=== PATIENT | female | born 1965 | race Hispanic/Latino ===

== ENCOUNTER 2018-01-06 14:29 | Outpatient (CLI) | payer OTHER ==
--- NOTE | 2018-01-06 16:09 | RAD ---
LUMBAR SPINE: 01/06/18 Three views. Lateral views taken with neutral, flexion and extension positions. INDICATIONS: Spondylosis. Low back pain. Comparison made to exam of 12/16/17. In the neutral position, the lumbar vertebrae maintain normal height and alignment. Disc spaces are p reserved. Mild degenerative osteophytes are seen from the lumbar vertebrae and moderate facet hypertr ophy is noted at L4-5 and L5-S1. There is slight anterolisthesis at L3-4 and L4-5 with flexion. This anterolisthesis is measured at 3 to 4 mm at L3-4 and 4 to 5 mm at L4-5. No change in alignment noted with extension. IMPRESSION: 1. Mild degenerative changes in the lumbar spine as described. 2. Mild anterolisthesis at L3-4 and L4-5 with flexion. POS: [facility]
== END 2018-01-06 14:30 | disposition home or self-care (01) ==
LOC: RAD 14:29
PROVIDERS: ATTEND Nurse Practitioner Family
DX: M47.816 Spondylosis without myelopathy or radiculopathy, lumbar region (principal); M43.16 Spondylolisthesis, lumbar region
CPT/HCPCS: 72100

== ENCOUNTER 2019-04-20 08:59 | Outpatient (CLI) | payer OTHER ==
--- NOTE | 2019-04-20 09:45 | MMO ---
Bilateral MAMMO Bilat Screen [id number]. CLINICAL HISTORY: Patient is 53 years old and is seen for screening. VIEWS: The views performed were: bilateral craniocaudal with tomosynthesis and bilateral mediolateral oblique with tomosynthesis. FILMS COMPARED: The present examination has been compared to prior imaging studies performed at [facility] on 11/14/2008 and 12/07/2010. MAMMOGRAM FINDINGS: There are scattered fibroglandular densities. Finding 1: There are stable benign appearing calcifications seen in both breasts. Finding 2: There is a stable intramammary lymph node seen in the right breast. There are no suspicious masses, suspicious calcifications, or new areas of architectural distortion. IMPRESSION: THERE IS NO MAMMOGRAPHIC EVIDENCE OF MALIGNANCY. A ROUTINE FOLLOW-UP MAMMOGRAM IN 1 YEAR IS RECOMMENDED. THE RESULTS OF THIS EXAM WERE SENT TO THE PATIENT. ACR BI-RADS Category 2 - Benign finding MAMMOGRAPHY NOTE: 1. A negative mammogram report should not delay a biopsy if a dominant of clinically suspicious mass is present. 2. Approximately 10% to 15% of breast cancers are not detected by mammography. 3. Adenosis and dense breasts may obscure an underlying neoplasm. Reported by: JEANETTE NIX MD Electonically Signed: [id number]
== END 2019-04-20 09:00 | disposition home or self-care (01) ==
LOC: BICMAMMO 08:59
PROVIDERS: ATTEND Physician Assistant
DX: Z12.31 Encounter for screening mammogram for malignant neoplasm of breast (principal)
CPT/HCPCS: 77063; 77067

== ENCOUNTER 2020-02-28 13:54 | Observation (INO) | payer SELFPAY ==
--- NOTE | 2020-02-28 14:15 | CT ---
CT head noncontrast HISTORY: Left-sided weakness. FINDINGS: There is no evidence of acute intracranial hemorrhage or infarct. The ventricles appear nor mal in size, shape and position. There is no mass effect or shift of midline structures. Visualized paranasal sinuses remain well aera maty. IMPRESSION : No acute intracranial abnormalities are demonstrated.
[2020-02-28 14:30] LABS: #Eosinphils 0.2 thou/uL (0.0-0.7); #Monocytes 0.4 thou/uL (0.11-0.59); #Neutrophils 3.1 thou/uL (1.40-6.50); %Basophils 0.5 % (0.0-1.0); %Eosinophils 2.8 % (0.0-10.0); %Monocytes 7.3 % (0.0-10.0); %Neutrophils 54.4 % (42.0-75.0); Hemoglobin 12.7 g/dL (12.0-16.0); Mean Corpuscular HGB CONC 31.8 g/dL (32.0-36.0); Mean Corpuscular Hemoglobin 28.5 pg (27.0-31.0); Mean Corpuscular Volume 89.8 fL (78.0-98.0); Platelet Count 203 thou/uL (130-400); RBC Distribution Width 12.3 % (11.5-14.5); Red Blood Cell (RBC) Count 4.44 mill/uL (4.20-5.40); White Blood Cell (WBC) Count 5.7 thou/uL (4.8-10.8)
--- NOTE | 2020-02-28 14:46 | RAD ---
CHEST 1 VIEW: HISTORY: Left-sided weakness, stroke. COMPARISON: 04/18/2014. FINDINGS: Heart size is normal. The lungs are clear. No confluent pneumonia, overt edema, or pleural effusion . IMPRESSION: No acute intrathoracic disease. POS: [facility]
[2020-02-28 14:50] LABS: ALT (SGPT) 84 U/L (8-55); AST (SGOT) 76 U/L (5-34); Albumin 4.7 g/dL (3.5-5.0); Alkaline Phosphatase 74 U/L (40-110); Anion Gap 14 mmol/L (10-20); BUN (Urea Nitrogen) 12 mg/dL (9.8-20.1); Bilirubin, Total 0.5 mg/dL (0.2-1.2); Calc. Creatinine Clearance 0 mL/min (70-130); Calcium 9.7 mg/dL (7.8-10.44); Carbon Dioxide 26 mmol/L (22-29); Chloride 104 mmol/L (98-107); Estimated GFR-MDRD 79; Glucose 120 mg/dL (70-105); Potassium 3.7 mmol/L (3.5-5.1); Protein, Total 7.7 g/dL (6.0-8.3); Sodium 140 mmol/L (136-145)
[2020-02-28] MEDS ORDERED: Aspirin Chewable 81 MG TAB ONE (15:35)
[2020-02-28 16:41] LABS: Bilirubin Negative (Negative); Blood, Urine Negative (Negative); Clarity Clear (Clear); Glucose, Urine (Dipstick) Normal (Negative); Leukocyte Negative Leu/uL (Negative); Nitrite Negative (Negative); Protein, Urine (Dipstick) Negative (Neg-Trace); Urobilinogen Normal mg/dL (Less than 2)
[2020-02-28] MEDS ORDERED: Ondansetron PF 4 MG/2 ML Vial IVP PRN (16:48)
[2020-02-28] MEDS ORDERED: Ondansetron ODT 4 MG TAB SL PRN (16:48)
[2020-02-28 17:44] VITALS: BMI 32.8
[2020-02-28 17:55] LABS: Lactic Acid 1.7 mmol/L (0.5-2.2)
[2020-02-28 18:03] LABS: Troponin I 0.011 ng/mL (< 0.028)
[2020-02-28] MEDS: Acetaminophen 325 MG TAB PO PRN (18:10)
[2020-02-28] MEDS ORDERED: Calcium Carbonate 500 MG ChewTAB PO PRN (19:21)
[2020-02-28] MEDS ORDERED: Bisacodyl 5 MG TAB PO PRN (19:21)
--- NOTE | 2020-02-28 19:26 | PDOC.HHP ---
Hospitalist HPI - History of Present Illness chest pain and arm pain History of Present Illness: This is 54 year old female with history of diabetes, neuropathy in her legs, back pain, cervical pain who presented to the ER with chest pain. THe patient states that she was walking into her kitchen this morning when her left arm started hurting intensely and felt like a sharp internal pain. She then developed chest pain at the same time that was radiating towards her neck and felt like someone taking a finger and pushing on her chest. The patient reported no worsening with exertion. Her arm pain resolved when she lifted her arm up above her shoulder, but then recurred when she extended it. She also describes a burning sensation in her left hand and left arm, but did not see any skin rashes. She also states she had concomitant left thigh pain as well, but no burning. She denies any recent trauma or falls. There was no diaphoresis , sweating, cough, fevers, or chills. SDue to persistent pain she came to the ER for further evaluation. She reports that she has had left arm pain before preceding her chest pain but typically it resolves. ED Course: The patient presented to the ER with normal vitals. She had Chest Xray which was normal and CT head which was normal. The patient was given aspirin and nitro paste. Currently her pain has resolved. Hospitalist ROS - Review of Systems Constitutional: denies: fever, chills ENT: denies: ear pain, ear discharge Respiratory: denies: cough, dry, shortness of breath Cardiovascular: denies: chest pain, palpitations, orthopnea, light headedness Gastrointestinal: denies: nausea, vomiting, abdominal pain, diarrhea Genitourinary: denies: dysuria, frequency Musculoskeletal: denies: neck pain, shoulder pain Skin: denies: rash, lesions Neurological: denies: weakness, numbness - Medication Medications: Active Medications Generic Name Dose Route Start Last Admin Trade Name Freq PRN Reason Stop Dose Admin Acetaminophen 650 mg 02/28/20 16:48 02/28/20 18:10 Tylenol PO 02/29/20 03:30 650 mg Q4H PRN Administration Headache/Fever or Pain Hospitalist History - Past Medical History Other Medical History: Chronic neck pain and back pain Diabetes Diabetic neuropathy - Past Surgical History Past Surgical History: reports: Hysterectomy - Family History Other Family History: mother had pacemaker or debrillator grandmother had heart disease - Social History Smoking Status: Former smoker (smoked back in her 30's) Alcohol: reports: None Drugs: reports: none - Exam General Appearance: NAD General - other findings: obese Eye: PERRL, anicteric sclera ENT: normocephalic atraumatic, no oropharyngeal lesions Neck - other findings: pain lateral neck flexion to left. Tend palpation left paraspinal Heart: RRR, no murmur, no gallops, no rubs Heart - other findings: intact pulses Respiratory: CTAB, no wheezes, no rales Gastrointestinal: soft, non-tender, non-distended, normal bowel sounds Extremities: no cyanosis, no clubbing, no edema Extremities - other findings: tenderness left axilla, left forearm. Pain with adduction and abd to 90 Skin: normal turgor, no lesions, no rashes Neurological: cranial nerve grossly intact, normal sensation to touch, no focal deficits, no new deficit Musculoskeletal: normal tone, normal strength, no muscle wasting Hospitalist Results - Labs Result Diagrams: 02/28/20 14:17 02/28/20 14:17 Lab results: WBC 5.7 thou/uL (4.8-10.8) 02/28/20 14:17 Hgb 12.7 g/dL (12.0-16.0) 02/28/20 14:17 Hct 39.9 % (36.0-47.0) 02/28/20 14:17 MCV 89.8 fL (78.0-98.0) 02/28/20 14:17 Plt Count 203 thou/uL (130-400) 02/28/20 14:17 Neutrophils % 54.4 % (42.0-75.0) 02/28/20 14:17 Sodium 140 mmol/L (136-145) 02/28/20 14:17 Potassium 3.7 mmol/L (3.5-5.1) 02/28/20 14:17 Chloride 104 mmol/L (98-107) 02/28/20 14:17 Carbon Dioxide 26 mmol/L (22-29) 02/28/20 14:17 BUN 12 mg/dL (9.8-20.1) 02/28/20 14:17 Creatinine 0.76 mg/dL (0.6-1.1) 02/28/20 14:17 Glucose 120 mg/dL (70-105) H 02/28/20 14:17 Lactic Acid 1.7 mmol/L (0.5-2.2) 02/28/20 17:31 Calcium 9.7 mg/dL (7.8-10.44) 02/28/20 14:17 Total Bilirubin 0.5 mg/dL (0.2-1.2) 02/28/20 14:17 AST 76 U/L (5-34) H 02/28/20 14:17 ALT 84 U/L (8-55) H 02/28/20 14:17 Alkaline Phosphatase 74 U/L (40-110) 02/28/20 14:17 Troponin I 0.011 ng/mL (< 0.028) 02/28/20 17:31 Serum Total Protein 7.7 g/dL (6.0-8.3) 02/28/20 14:17 Albumin 4.7 g/dL (3.5-5.0) 02/28/20 14:17 Urine Ketones Negative mg/dL (Negative) 02/28/20 16:23 Urine Blood Negative (Negative) 02/28/20 16:23 Urine Nitrite Negative (Negative) 02/28/20 16:23 Ur Leukocyte Esterase Negative Albert/uL (Negative) 02/28/20 16:23 Hospitalist H&P A/P - Plan Plan: CT brain: negative chest X ray: normal This is 54 year old female presenting with left chest and arm pain Chest pain/Left arm pain - possibly secondary to cervical radiculopathy vs shoulder pathology vs coronary - EKG normal. Troponin negative x 2 - will check CT cervical spine due to patient relief with lifting arm up and neck tenderness on exam and with lateral flexion. Check shoulder X ray due to pain with abduction - check stress test in the am to rule out coronary disease - continue gabapentin and duloxetine Chronic arthritis - hold meloxicam for now Type II diabetes - insulin sliding scale. Hold metformin Code status: full code
[2020-02-28] MEDS ORDERED: HumaLOG 300 UNITS/3 ML VIAL SC PRN (19:27)
[2020-02-28] MEDS ORDERED: Dextrose 5% in Water 1,000 ML IV PRN (19:27)
[2020-02-28] MEDS ORDERED: Dextrose 50% Abboject 50 ML SYRINGE SLOW IVP PRN (19:27)
[2020-02-28 20:44] LABS: Troponin I 0.013 ng/mL (< 0.028)
[2020-02-28] MEDS: Heparin 5,000 UNITS/ML VIAL SC SCH (21:19)
[2020-02-28] MEDS: Gabapentin 400 MG CAP PO SCH (21:19)
[2020-02-28] MEDS: DULoxetine 30 MG CAP PO SCH (21:19)
[2020-02-29] MEDS: Acetaminophen 325 MG TAB PO PRN (04:18)
[2020-02-29 04:37] LABS: #Eosinphils 0.1 thou/uL (0.0-0.7); #Lymphocytes 1.9 thou/uL (1.20-3.40); #Monocytes 0.3 thou/uL (0.11-0.59); #Neutrophils 1.8 thou/uL (1.40-6.50); %Basophils 0.9 % (0.0-1.0); %Eosinophils 3.6 % (0.0-10.0); %Lymphocytes 45.7 % (21.0-51.0); %Monocytes 6.7 % (0.0-10.0); Hemoglobin 13.1 g/dL (12.0-16.0); Mean Corpuscular HGB CONC 31.7 g/dL (32.0-36.0); Mean Corpuscular Hemoglobin 28.5 pg (27.0-31.0); Mean Corpuscular Volume 89.8 fL (78.0-98.0); Mean Platelet Volume 10.3 fL (7.4-10.4); Platelet Count 188 thou/uL (130-400); RBC Distribution Width 12.3 % (11.5-14.5); Red Blood Cell (RBC) Count 4.61 mill/uL (4.20-5.40); White Blood Cell (WBC) Count 4.1 thou/uL (4.8-10.8)
[2020-02-29 04:57] LABS: Anion Gap 15 mmol/L (10-20); BUN (Urea Nitrogen) 10 mg/dL (9.8-20.1); Calc. Creatinine Clearance 128 mL/min (70-130); Calcium 9.6 mg/dL (7.8-10.44); Carbon Dioxide 24 mmol/L (22-29); Cardiac Risk 4.6 (Less than 4.5); Chloride 104 mmol/L (98-107); Cholesterol 205 mg/dl (< 200 Desired); Estimated GFR-MDRD 79; Glucose 149 mg/dL (70-105); HDL Cholesterol 45 mg/dL (>60 Neg Risk); LDL Cholesterol, Calculated 126 mg/dL; Potassium 3.6 mmol/L (3.5-5.1); Sodium 139 mmol/L (136-145); Triglycerides 171 mg/dL (Less than 150)
--- NOTE | 2020-02-29 07:44 | CT ---
CT CERVICAL SPINE WITHOUT CONTRAST: HISTORY: Neck pain, radiculopathy. COMPARISON: None. FINDINGS: The occipital condyles are intact. The odontoid process is intact. Mild ossification of the apical ligament. No acute traumatic facet joint widening. The skull base is intact. The transverse processes are intact. Lung apices are clear. Multiple hypodensities of the thyroid. Reactive left cervical lymph nodes. Posterior ribs are intact. Thee is advanced degenerative disk space height loss at C5-C7 with circumferential disk-osteophyte co mplexes. There is moderate to severe bilateral neural foraminal narrowing at these levels. MRI will be necessary for full delineation. IMPRESSION: 1. High-grade lower cervical spine degenerative changes with neural foraminal and mild spinal canal narrowing. MRI recommended if clinically warranted. 2. No acute fracture or malalignment. 3. Hypodensities of the enlarged thyroid for which nonemergent ultrasound is recommended. POS: HOME
--- NOTE | 2020-02-29 07:55 | RAD ---
LEFT SHOULDER 2 VIEWS: HISTORY: Arm pain. COMPARISON: None. FINDINGS: No acute displaced fracture or malalignment. Mild narrowing of the acromioclavicular joint. IMPRESSION: No acute osseous abnormality. POS: HOME
--- NOTE | 2020-02-29 07:55 | RAD ---
LEFT FOREARM 2 VIEWS: HISTORY: Tenderness. COMPARISON: None. FINDINGS: No fracture. No malalignment. Low-grade medial compartment joint space narrowing of the elbow. IMPRESSION: No osseous abnormality. POS: HOME
[2020-02-29] MEDS: Heparin 5,000 UNITS/ML VIAL SC SCH ×2 (08:52→15:49)
[2020-02-29] MEDS: DULoxetine 30 MG CAP PO SCH (08:52)
[2020-02-29] MEDS: Gabapentin 400 MG CAP PO SCH ×2 (08:52→15:48)
[2020-02-29] MEDS ORDERED: ADENOSINE 60 MG/20 ML VIAL ONE (09:25)
--- NOTE | 2020-02-29 12:39 | NM ---
Radionucleotide stress and rest myocardial perfusion scan with CT attenuation correction and SPECT im aging Left ventricular wall motion evaluation and ejection fraction. FINDINGS: Adenosine protocol. Homogeneous uptake of radiotracer throughout the left ventricular myoca rdium. No focal perfusion defect or reversibility. QGS analysis of gated SPECT images shows no focal wall motion abnormalities. Ejection fraction calcul ated at 57%. IMPRESSION : No evidence of ischemia. Normal LVEF.
[2020-02-29] MEDS ORDERED: Cyclobenzaprine 10 MG TAB PO PRN (12:52)
[2020-02-29] MEDS ORDERED: Acetaminophen 325 MG TAB PO PRN (12:53)
[2020-02-29] MEDS ORDERED: Lorazepam 0.5 MG TAB PO PRN (12:53)
[2020-02-29] MEDS ORDERED: Lidocaine 5% Patch TD SCH (13:00)
--- NOTE | 2020-02-29 15:54 | MRI ---
MRI Cervical spine without contrast: HISTORY: Neck pain and radiculopathy. Patient has neck pain radiating to left shoulder. COMPARISON: None FINDINGS: Motion is present on multiple sequences which degrades image quality primarily on axial imaging. The craniocervical junction is unremarkable. No significant cord signal abnormality. Paravertebral soft tissues have a normal appearance and normal signal intensity. Scattered osteophytes are seen anteriorly involving the cervical spine. C1-2:No significant stenosis. C2-3: There is no disc bulge or disc herniation. The central spinal canal and neural foramina are pat ent. C3-4: Mild disc osteophyte complex is present. This narrows the ventral subarachnoid space. Mild face t degenerative change are seen on the left. Right neural foramen is patent, but there is moderate left-sided neural foraminal narrowing. C4-5: Loss of intervertebral disc height. Broad-based disc osteophyte complex is present with right-s ided uncinate process hypertrophy. There is mild effacement of the ventral subarachnoid space. Mild bilateral neural foraminal narrowing is present. C5-6: Loss of intervertebral disc height. Broad-based disc osteophyte complex is present. Motion wm fact limits evaluation for the degree of neural foraminal narrowing, but there is mild to moderate left and suggestion of moderate right-sided neural foraminal narrowing. Mild generalized narrowing of the central spinal canal is present. C6-7: Mild endplate degenerative changes with broad-based disc osteophyte complex and facet degenerat chichi changes. Mild narrowing of the central spinal canal is present. There is a left paracentral disc osteophyte noted which does result in slightly greater mass effect on the left anterolateral asp ect of the spinal cord. Mild left and mild/moderate right-sided neural foraminal narrowing is present. C7-T1: Mild disc osteophyte complex is present eccentrically greater on the left. Right neural forame n is patent, but there is mild to moderate left-sided neural foraminal narrowing. Only minimal effacement of ventral subarachnoid space is present. T1-2: Mild disc osteophyte complex with slight effacement of ventral subarachnoid space. Neural juan carlos enrique are patent. T2-3: Mild disc osteophyte complex with only slight effacement of ventral subarachnoid space. Mild bi lateral neural foraminal narrowing is present. IMPRESSION: Degenerative changes in the cervical spine.
[2020-02-29 16:05] VITALS: BP 135/66; TEMP 98.2
[2020-02-29] MEDS ORDERED: traMADol HCl 50 MG TAB PO SCH (17:30)
--- NOTE | 2020-02-29 17:41 | MRI ---
LUMBAR SPINE MRI WITHOUT IV CONTRAST: 02/29/20 HISTORY: Low back pain with left leg radiculopathy. Multiplanar, multisequence MRI examination of the lumbar spine is performed. Generalized disc desicca tion changes and ligament and facet hypertrophic changes. No significant abnormal marrow edema. T12-L1 disc: Unremarkable. L1-2 disc: Unremarkable. L2-3 disc: Minimal disc bulging and annular fissures. Mild lateral recess stenosis bilaterally. There is also minimal fatty infiltration changes of a nonthickened filum terminale. L3-4 disc: More extensive facet arthrosis. Moderate lateral recess stenosis and moderate bilateral fo raminal stenosis. L4-5 disc: More marked facet arthrosis. Moderate central canal, lateral recess, and foraminal stenosi s. L5-S1 disc: Focal left paracentral protrusion with slight depression of the left S1 nerve root. Mode rate bilateral foraminal stenosis. IMPRESSION: Variable severity multilevel canal, lateral recess, and foraminal stenosis as above. POS: [facility]
[2020-03-01] MEDS ORDERED: Lidocaine Patch Removal 1 EACH TOP SCH (01:00)
--- NOTE | 2020-03-01 02:20 | DIS ---
DATE OF ADMISSION: 02/28/2020 DATE OF DISCHARGE: 02/29/2020 DISCHARGE DIAGNOSES: 1. Chest pain, likely secondary to radiculopathy from cervical degenerative disk disease/herniated disc C6-C7 2. Lumbar spinal stenosis. 3. Leukopenia. 4. Hyperlipidemia. 5. Hypertriglyceridemia. 6. Transaminitis. 7. Possible thyroid lobe nodules. CONSULTATIONS: neurosurgery (informal) PROCEDURES PERFORMED: None. HISTORY OF PRESENT ILLNESS: This is a 54-year-old female with a past medical history of diabetes, neuropathy in her legs, back pain and cervical pain, who presented to the emergency room with chest pain. The patient states she was walking to her kitchen when all of a sudden her left arm started hurting intensely and it was aggravated by extending her arm and relieved with lifting her arm. She also had developed some chest pain that was radiating towards her neck. The patient reported a burning sensation in her fingers. She had EKG, which showed normal sinus rhythm. Troponins were normal. She had normal chest x-ray, normal CT head. She was given aspirin and nitroglycerin paste and admitted for further workup. HOSPITAL COURSE: Chest pain and left arm pain secondary to cervical radiculopathy: The patient had a left forearm x-ray and left shoulder x-ray, which were unremarkable. CT cervical spine showed high-grade lower cervical spine degenerative changes. Cervical spine MRI showed degenerative disk disease with possible herniated disk at C6-C7 with a left paracentral disk osteophyte causing some mass effect on the left anterolateral aspect of the spinal cord. She was continued on her home gabapentin and was given Flexeril with no improvement. She did have some improvement in her pain with tramadol. She was seen by Neurosurgery, who recommended the patient get pain management injections with Dr. French. Dr. French will try to arrange for th epatient to be seen in the clinic later this week for a pain injection. In the meantime , she was advised to continue her meloxicam, use some ice packs, and she can take tramadol for a few days. She was also given a prescription for lidocaine patch as well. If the patient does not have improvement with pain injections, then Dr. Chiang from Neurosurgery will contact her about possible spinal surgery. Of note, the patient did undergo a nuclear stress test to rule out CAD, which was negative and she had 3 sets of troponins, which were negative as well. The patient was seen by Physical Therapy and was cleared for discharge. The patient states she was able to shower and eat on her own. Therefore, OT did not see the patient. Hypertriglyceridemia: The patient had triglyceride level of 171. Her LDL was 126. The patient is advised to lose weight on discharge. Leukopenia: The patient's white count was 4.1 on the . She had no fevers. This can be repeated as an outpatient with her PCP. Transaminitis: The patient did have LFTs elevated with an AST of 76, ALT of 84 , and alkaline phosphatase that was normal. The patient had no abdominal pain, nausea , vomiting, or fever. She can have her LFTs repeated as an outpatient. She was advised to abstain from alcohol. Possible thyroid lobe nodules: The patient had a CT scan done of her cervical spine, which showed hypodensities of the enlarged thyroid. She should get thyroid ultrasound done as an outpatient. She is also noted to have some left cervical lymph nodes but on exam, it did not seem palpable. DISCHARGE PHYSICAL EXAMINATION: VITAL SIGNS: Temperature 98.2, heart rate 91, respiratory rate 16, O2 saturation 97% on room air, and blood pressure 135/66. GENERAL: The patient is alert, awake, and oriented x3. CVS: Regular rate and rhythm with no murmurs, rubs, or gallops. NECK: The patient has pain when moving her head to the left. SHOULDER: The patient has no tenderness on her shoulder. She is able to abduct her left arm to 90 degrees with some pain. She has some pain with adduction. Currently, she is wearing a neck pillow due to the pain. ABDOMEN: Positive bowel sounds. Soft, nontender, and nondistended. EXTREMITIES: No edema. PERTINENT LABORATORY DATA: CBC 02/28: White count 4.1, hemoglobin 13.1, hematocrit 41.4, and platelet count 188. BMP 02/28: Normal. Lipid panel: Triglyceride 171, cholesterol 205, LDL 125, HDL 45. Troponin I: 0.010, 0.011, 0.013. LFTs: AST 76, ALT 84, alkaline phosphatase 74. UA: Negative. IMAGING: Left forearm two-view x-ray: No fracture. No osseous abnormality. CT cervical spine without contrast: Shows high-grade lower cervical spine degenerative changes with neural foraminal and mild spinal canal narrowing. No acute fracture or malalignment. Hypodensities of the large thyroid for which non emergent ultrasound is recommended. MRI cervical spine without contrast: Shows degenerative changes in the cervical spine. Of note, there is a left paracentral disk osteophyte causing greater mass effect in the left anterolateral aspect of the spinal cord. Please see full report for details. There is also disk osteophyte complex with slight effacement of the ventral subarachnoid space on T1-T3. MRI lumbar spine: Shows multilevel canal foraminal stenosis. She does have left paracentral protrusion with slight depression of the left S1 nerve root. Nuclear stress test 02/28: Shows no evidence of ischemia. Chest x-ray 02/27: Shows no acute disease. CT brain 02/27: Shows no acute intracranial abnormalities. Shoulder x-ray 02/27: Shows no acute abnormality. DISCHARGE CONDITION: Stable. ACTIVITY: As tolerated. DIET: Regular diet. DISCHARGE INSTRUCTIONS: The patient to follow up with her PCP in a week. She should follow up with Dr. French for possible pain injections. If no improvement, then she should see Dr. Chiang in the Neurosurgery Clinic in a week. She should have her labs rechecked for her cholesterol levels and her elevated liver enzymes. She was also noted to have some enlarged spots in her thyroid and should get a thyroid ultrasound as an outpatient. DISCHARGE MEDICATIONS: 1. Lidocaine patch. 2. Tramadol 25 mg p.o. q.6 hours p.r.n., quantity 12. Of note, [place] [employer] was checked prior to prescribing. Job ID: [id number] MTDD
--- NOTE | 2020-03-01 02:48 | CON ---
DATE OF CONSULTATION: 02/29/2020 HISTORY OF PRESENT ILLNESS: Ms. Garcia is a pleasant 54-year-old female, who presented yesterday for evaluation of neck pain, low back pain, and left greater than right-sided extremity pain and symptoms. She reports that she was sitting and talking to her daughter on the porch yesterday when she had sudden onset of pain in her left arm, primarily located to the medial aspect of her left elbow and down her forearm. Additionally, she has a burning pain in her left anterolateral thigh. She reports pain in the back of her neck as well as in her lower back. She reports that she has had more and more frequent episodes of her left leg giving out from underneath her and causing fall over the last 1 to 2 months. No prior cervical or lumbar surgeries. She has previously received a lumbar epidural steroid injection from Dr. French, but states that these only provided approximately 1 hour relief for increasing her discomfort. She has never previously had any cervical epidural steroid injections. On exam, patient appears comfortable resting in bed. No significant tenderness to palpation of her cervical, thoracic, or lumbar spines. No tenderness to palpation over her sacroiliac joints bilaterally. 4/5 hand interactive media marketing specialist strength bilaterally. 5/5 throughout lower extremity myotomes bilaterally. Subjective dysesthesia in left anterolateral thigh. Subjective decreased sensation in bilateral upper extremities and right foot. Gait was not assessed. MRIs of the cervical and lumbar spine were completed. 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 Her lumbar MRI showed no significant lumbar stenosis; however, the patient was noted to have mild tethered cord and fatty filum. At this time , no emergent or urgent neurosurgical intervention is indicated. Plan will be for the patient to follow up with Dr. French for C5-C7 interlaminar epidural steroid injections. We will reassess how the patient is doing over the next 1 to 2 weeks and if necessary consider need for C5-C7 ACDF. At this time, no intervention is necessary with regard to her lumbar spine. Discussed this plan with the patient and she states understanding. All questions answered at this time. The patient was provided with our team's business card and she will call with any further questions or concerns. We will arrange for appropriate followup on an outpatient basis. This case was discussed and imaging reviewed with Dr. Chiang. He agrees with the above review of imaging and plan. This was a 50-minute initial visit, in which greater than 50% of the time was spent in review of records, imaging, evaluation, examination of the patient, and formulation of plan. The remaining time was spent in counseling and coordination of care. Job ID: [id number] MTDD
== END 2020-02-29 19:40 | disposition home or self-care (01) ==
LOC: ERS 13:54 → 2NO 15:35
PROVIDERS: ADMIT Internal Medicine; ATTEND Internal Medicine
DX: M50.123 Cervical disc disorder at C6-C7 level with radiculopathy (principal); M48.061 Spinal stenosis, lumbar region without neurogenic claudication; D72.819 Decreased white blood cell count, unspecified; E78.5 Hyperlipidemia, unspecified; E78.1 Pure hyperglyceridemia; R74.0 Nonspecific elevation of levels of transaminase and lactic acid dehydrogenase [LDH]; E11.40 Type 2 diabetes mellitus with diabetic neuropathy, unspecified; M19.90 Unspecified osteoarthritis, unspecified site; M48.02 Spinal stenosis, cervical region; K21.9 Gastro-esophageal reflux disease without esophagitis; Z87.891 Personal history of nicotine dependence; Z79.84 Long term (current) use of oral hypoglycemic drugs; Z79.899 Other long term (current) drug therapy; Z88.2 Allergy status to sulfonamides
CPT/HCPCS: 36415; 36416; 70450; 71045; 72125; 72141; 72148; 78452; 80048; 80053; 80061; 81003; 83605; 84484; 85025; 93005; 93017; 94760; 96372; A9500; G0378; J0153; J1644

== ENCOUNTER 2020-04-28 08:58 | Outpatient (CLI) | payer OTHER ==
--- NOTE | 2020-04-28 09:47 | ULT ---
US Thyroid STANDARD: 04/28/2020 12:00 AM CLINICAL INDICATION: Enlarged thyroid. COMPARISON: None. FINDINGS: The right thyroid lobe measures 5.4 cm and the left thyroid lobe measures 5.9cm. Multiple scattered bilateral thyroid nodules are seen. The largest is seen on the right measuring 3.5 cm in length. This is well-circumscribed without suspicious calcifications. This nodule is solid and slightly hypoechoic to the background thyroid parenchyma. No cervical lymphadenopathy is noted. IMPRESSION: Multiple nodular thyroid TIRADS category 4 -given the size of the nodule in the right lower lobe, an FNA is recommended.
== END 2020-04-28 08:59 | disposition home or self-care (01) ==
LOC: BICULT 08:58
PROVIDERS: ATTEND Family Medicine
DX: R93.7 Abnormal findings on diagnostic imaging of other parts of musculoskeletal system (principal); E04.2 Nontoxic multinodular goiter
CPT/HCPCS: 76536

== ENCOUNTER 2020-12-14 13:53 | Outpatient (CLI) | payer OTHER, SELFPAY ==
[2020-12-14 15:11] LABS: Mean Corpuscular HGB CONC 31.6 g/dL (32.0-36.0); Mean Corpuscular Hemoglobin 27.1 pg (27.0-33.0); Mean Platelet Volume 12.6 fl (7.4-10.4); Platelet Count 205 10x3/uL (150-450); RBC Distribution Width 13.1 % (11.5-14.5); Red Blood Cell (RBC) Count 4.42 10x6/uL (3.90-5.03); White Blood Cell (WBC) Count 5.1 10x3/uL (3.5-10.5)
[2020-12-14 15:27] LABS: PTT 27.6 sec (22.0-33.0); Prothrombin Time 10.4 sec (9.5-12.1)
[2020-12-14 15:30] LABS: Anion Gap 14 mmol/L (10-20); BUN (Urea Nitrogen) 14 mg/dL (9.8-20.1); Calc. Creatinine Clearance 0 mL/min (70-130); Calcium 9.8 mg/dL (7.8-10.44); Carbon Dioxide 26 mmol/L (22-29); Chloride 102 mmol/L (98-107); Glucose 131 mg/dL (70-105); Sodium 138 mmol/L (136-145)
[2020-12-15 04:32] LABS: SARS-CoV-2 PCR by NAA Not Detected (NotDetected)
== END 2020-12-14 13:54 | disposition home or self-care (01) ==
LOC: LABBT 13:53
PROVIDERS: ATTEND Surgery
DX: Z01.818 Encounter for other preprocedural examination (principal); M50.10 Cervical disc disorder with radiculopathy, unspecified cervical region; M47.12 Other spondylosis with myelopathy, cervical region; M47.22 Other spondylosis with radiculopathy, cervical region; Z20.822 Contact with and (suspected) exposure to COVID-19
CPT/HCPCS: 80048; 85027; 85610; 85730; 87635; 93005; 93010; U0003; U0005

== ENCOUNTER 2020-12-19 07:59 | Day surgery (SDC) | payer OTHER ==
[2020-12-15 14:38] VITALS: BMI 31.9
[2020-12-19] MEDS ORDERED: Levofloxacin 500 mg/D5W 100 ml Premix Bag ONE (08:24)
[2020-12-19] MEDS ORDERED: Clindamycin/D5W 900 mg/50 ml Premix Bag ONE (08:24)
[2020-12-19] MEDS ORDERED: Thrombin 5000 UNITS/5 ML VIAL ONE (10:54)
[2020-12-19] MEDS ORDERED: Fentanyl 250 MCG/5 ML VIAL ONE (11:07)
[2020-12-19] MEDS ORDERED: PROPOFOL 200 MG/20 ML VIAL ONE (11:22)
[2020-12-19] MEDS ORDERED: Dexamethasone 20 MG/5 ML VIAL ONE (11:22)
[2020-12-19] MEDS ORDERED: PHENYLEPHRINE-NS 100 MCG/ML 10 ML SYRINGE ONE (11:22)
[2020-12-19] MEDS ORDERED: Lidocaine 1% PF 5 ML VIAL ONE (11:22)
[2020-12-19] MEDS ORDERED: Metoclopramide HCl 10 MG/2 ML VIAL ONE (11:22)
[2020-12-19] MEDS ORDERED: Rocuronium Bromide 10 MG/ML (10ML VIAL) ONE (11:22)
[2020-12-19] MEDS ORDERED: Ondansetron PF 4 MG/2 ML Vial ONE (11:22)
[2020-12-19] MEDS ORDERED: SUGAMMADEX SODIUM 200 MG/2 ML VIAL ONE (13:34)
[2020-12-19] MEDS ORDERED: Fentanyl 100 MCG/2 ML VIAL ONE ×2 (14:40→15:49)
[2020-12-19] MEDS ORDERED: Acetaminophen 325 MG TAB PO PRN (15:02)
[2020-12-19] MEDS ORDERED: traMADol HCl 50 MG TAB PO PRN (15:02)
[2020-12-19] MEDS ORDERED: tiZANidine HCl 4 MG TAB PO PRN (15:02)
[2020-12-19] MEDS ORDERED: Acetaminophen/Codeine 30-300mg Tablet PO PRN (15:02)
[2020-12-19] MEDS ORDERED: Morphine 2 MG/ML VIAL SLOW IVP PRN (15:02)
[2020-12-19] MEDS ORDERED: Clindamycin/D5W 900 MG in Premix Bag 1 BAG IVPB SCH (16:00)
[2020-12-19] MEDS ORDERED: Chloraseptic Spray 180 ml Bottle PO PRN (16:45)
[2020-12-19] MEDS: Sodium Chloride 0.9% 1,000 ML IV SCH (17:15)
[2020-12-19] MEDS: metFORMIN 500 MG TAB PO SCH (17:42)
[2020-12-19] MEDS: HYDROcodone/Acetaminophen 7.5/325 mg Tablet PO PRN ×2 (17:42→23:32)
[2020-12-19] MEDS: DULoxetine 30 MG CAP PO SCH (20:18)
[2020-12-19] MEDS: Gabapentin 400 MG CAP PO SCH (20:18)
[2020-12-19] MEDS: Clindamycin/D5W 900 MG in Premix Bag 1 BAG IVPB SCH (20:18)
[2020-12-19] MEDS: Cepastat Lozenges 1 LOZ PO PRN (21:09)
[2020-12-19] MEDS ORDERED: tiZANidine HCl 4 MG TAB ONE (23:28)
[2020-12-20] MEDS ORDERED: Transdermal Patch Removal TOP SCH (01:00)
[2020-12-20] MEDS: Cepastat Lozenges 1 LOZ PO PRN (03:13)
[2020-12-20] MEDS: Clindamycin/D5W 900 MG in Premix Bag 1 BAG IVPB SCH (03:13)
[2020-12-20] MEDS: Sodium Chloride 0.9% 1,000 ML IV SCH (03:26)
[2020-12-20] MEDS: metFORMIN 500 MG TAB PO SCH (09:27)
[2020-12-20] MEDS: HYDROcodone/Acetaminophen 7.5/325 mg Tablet PO PRN (09:27)
[2020-12-20] MEDS: DULoxetine 30 MG CAP PO SCH (09:27)
[2020-12-20] MEDS: Gabapentin 400 MG CAP PO SCH (09:28)
[2020-12-20 11:48] VITALS: BP 132/63; TEMP 98
[2020-12-20] MEDS ORDERED: Lidocaine 5% Patch TD PRN (13:00)
== END 2020-12-20 12:21 | disposition home or self-care (01) ==
LOC: SDC 07:59 → SURG B 15:02 → SDC 12-20 12:21
PROVIDERS: ATTEND Surgery
PROC: 0RG20A0 Fusion of 2 or more Cervical Vertebral Joints with Interbody Fusion Device, Anterior Approach, Anterior Column, Open Approach (ICD-10-PCS; principal; 2020-12-19)
PROC: 0RT30ZZ Resection of Cervical Vertebral Disc, Open Approach (ICD-10-PCS; principal; 2020-12-19)
DX: M48.02 Spinal stenosis, cervical region (principal); M50.00 Cervical disc disorder with myelopathy, unspecified cervical region; M50.10 Cervical disc disorder with radiculopathy, unspecified cervical region; M47.12 Other spondylosis with myelopathy, cervical region; M47.22 Other spondylosis with radiculopathy, cervical region; Z79.84 Long term (current) use of oral hypoglycemic drugs; Z79.899 Other long term (current) drug therapy; Z88.0 Allergy status to penicillin; Z88.2 Allergy status to sulfonamides; Z91.018 Allergy to other foods
CPT/HCPCS: 36416; 76000; C1713; C1768; C1776; J1100; J1956; J2405; J2704; J2765; J3010; J3490; L0174

== ENCOUNTER 2021-01-30 13:47 | Outpatient (CLI) | payer OTHER | END 2021-01-30 13:48 | disposition home or self-care (01) | LOC: BICRAD 13:47 | PROVIDERS: ATTEND Physician Assistant | DX: M47.22 Other spondylosis with radiculopathy, cervical region (principal); Z98.890 Other specified postprocedural states | CPT/HCPCS: 72040 ==

== ENCOUNTER 2021-03-12 09:16 | Outpatient (CLI) | payer OTHER ==
[2021-03-12 11:11] LABS: Hemoglobin 11.9 g/dL (12.0-15.5); Mean Corpuscular HGB CONC 30.7 g/dL (32.0-36.0); Mean Corpuscular Hemoglobin 27.4 pg (27.0-33.0); Mean Corpuscular Volume 89.4 fl (81.6-98.3); Mean Platelet Volume 12.8 fl (7.4-10.4); Platelet Count 213 10x3/uL (150-450); RBC Distribution Width 13.4 % (11.5-14.5); Red Blood Cell (RBC) Count 4.34 10x6/uL (3.90-5.03); White Blood Cell (WBC) Count 4.8 10x3/uL (3.5-10.5)
[2021-03-12 11:33] LABS: PTT 26.8 sec (22.0-33.0); Prothrombin Time 10.6 sec (9.5-12.1)
[2021-03-12 11:39] LABS: Anion Gap 14 mmol/L (10-20); BUN (Urea Nitrogen) 9 mg/dL (9.8-20.1); Calc. Creatinine Clearance 0 mL/min (70-130); Calcium 9.6 mg/dL (7.8-10.44); Carbon Dioxide 26 mmol/L (22-29); Chloride 105 mmol/L (98-107); Glucose 144 mg/dL (70-105); Potassium 4.7 mmol/L (3.5-5.1); Sodium 140 mmol/L (136-145)
== END 2021-03-12 09:17 | disposition home or self-care (01) ==
LOC: LABBT 09:16
PROVIDERS: ATTEND Surgery
DX: Z01.818 Encounter for other preprocedural examination (principal); M54.16 Radiculopathy, lumbar region; M48.062 Spinal stenosis, lumbar region with neurogenic claudication
CPT/HCPCS: 80048; 85027; 85610; 85730; 93005; 93010

== ENCOUNTER 2021-03-15 08:36 | Day surgery (SDC) | payer OTHER ==
[2021-03-14 11:11] VITALS: BMI 31.9
[2021-03-15] MEDS ORDERED: Fentanyl 100 MCG/2 ML VIAL ONE ×3 (10:05→15:10)
[2021-03-15] MEDS ORDERED: Levofloxacin 500 mg/D5W 100 ml Premix Bag ONE (10:06)
[2021-03-15] MEDS ORDERED: Clindamycin/D5W 900 mg/50 ml Premix Bag ONE (10:22)
[2021-03-15] MEDS ORDERED: Thrombin 5000 UNITS/5 ML VIAL ONE (11:25)
[2021-03-15] MEDS ORDERED: Fentanyl 250 MCG/5 ML VIAL ONE (11:29)
[2021-03-15] MEDS ORDERED: Glycopyrrolate 0.2 MG/ML 5 ML SYRINGE ONE (12:02)
[2021-03-15] MEDS ORDERED: Lidocaine 1% PF 5 ML VIAL ONE (12:02)
[2021-03-15] MEDS ORDERED: Dexamethasone 20 MG/5 ML VIAL ONE (12:02)
[2021-03-15] MEDS ORDERED: Rocuronium Bromide 10 MG/ML (10ML VIAL) ONE (12:02)
[2021-03-15] MEDS ORDERED: Ondansetron PF 4 MG/2 ML Vial ONE (12:02)
[2021-03-15] MEDS ORDERED: PROPOFOL 200 MG/20 ML VIAL ONE (12:02)
[2021-03-15] MEDS ORDERED: PHENYLEPHRINE-NS 100 MCG/ML 10 ML SYRINGE ONE (12:02)
[2021-03-15] MEDS ORDERED: Ketorolac Tromethamine 30 MG/ML VIAL ONE (12:02)
[2021-03-15] MEDS ORDERED: Promethazine HCl 25 MG/ML VIAL SLOW IVP PRN (13:42)
[2021-03-15] MEDS ORDERED: Promethazine HCl 25 MG/ML VIAL IM PRN (13:42)
[2021-03-15] MEDS ORDERED: Ondansetron HCl/PF 4 MG/2 ML Vial IVP PRN (13:42)
[2021-03-15] MEDS ORDERED: Morphine Sulfate 2 MG/ML SYRINGE SLOW IVP PRN (13:42)
[2021-03-15] MEDS ORDERED: HYDROmorphone 2 MG/ML VIAL SLOW IVP PRN (13:42)
[2021-03-15] MEDS ORDERED: PACU-Morphine 4MG/ML VIAL SLOW IVP PRN (13:42)
[2021-03-15] MEDS ORDERED: traMADol HCl 50 MG TAB PO PRN ×2 (14:53→14:55)
[2021-03-15] MEDS ORDERED: Morphine 2 MG/ML VIAL SLOW IVP PRN (14:53)
[2021-03-15] MEDS ORDERED: Acetaminophen/Codeine 30-300mg Tablet PO PRN (14:53)
[2021-03-15] MEDS ORDERED: tiZANidine HCl 4 MG TAB PO PRN (14:53)
[2021-03-15] MEDS ORDERED: Acetaminophen 325 MG TAB PO PRN (14:53)
[2021-03-15] MEDS ORDERED: HYDROcodone/Acetaminophen 7.5/325 mg Tablet PO PRN (14:53)
[2021-03-15] MEDS ORDERED: Meloxicam 7.5 MG TAB PO PRN (14:55)
[2021-03-15] MEDS ORDERED: Dulaglutide [Trulicity] 0.75 MG/0.5 ML Pen.Injctr SC SCH (15:15)
[2021-03-15] MEDS: Clindamycin/D5W 900 MG in Premix Bag 1 BAG IVPB SCH (17:42)
[2021-03-15] MEDS: metFORMIN 500 MG TAB PO SCH (17:46)
[2021-03-15] MEDS: Sodium Chloride 0.9% 1,000 ML IV SCH (18:26)
[2021-03-15] MEDS ORDERED: Atorvastatin Calcium 40 MG TAB PO SCH (21:00)
[2021-03-15] MEDS: Gabapentin 400 MG CAP PO SCH (21:49)
[2021-03-15] MEDS: DULoxetine 30 MG CAP PO SCH (21:49)
[2021-03-16] MEDS: Clindamycin/D5W 900 MG in Premix Bag 1 BAG IVPB SCH (02:10)
[2021-03-16] MEDS: Sodium Chloride 0.9% 1,000 ML IV SCH (04:58)
[2021-03-16 07:58] VITALS: BP 126/80; TEMP 98.1
[2021-03-16] MEDS: metFORMIN 500 MG TAB PO SCH (08:12)
[2021-03-16] MEDS: Gabapentin 400 MG CAP PO SCH (08:12)
[2021-03-16] MEDS: DULoxetine 30 MG CAP PO SCH (08:12)
[2021-03-16] MEDS ORDERED: azaTHIOprine 50 MG TAB PO SCH (09:00)
== END 2021-03-16 09:40 | disposition home or self-care (01) ==
LOC: SDC 08:36 → SURG B 14:53 → SDC 03-16 09:40
PROVIDERS: ATTEND Surgery
PROC: 01NB0ZZ Release Lumbar Nerve, Open Approach (ICD-10-PCS; principal; 2021-03-15)
DX: M48.062 Spinal stenosis, lumbar region with neurogenic claudication (principal); M54.16 Radiculopathy, lumbar region; M48.02 Spinal stenosis, cervical region; Z79.84 Long term (current) use of oral hypoglycemic drugs; Z79.899 Other long term (current) drug therapy; Z88.0 Allergy status to penicillin; Z88.2 Allergy status to sulfonamides; Z91.018 Allergy to other foods; Z91.09 Other allergy status, other than to drugs and biological substances; Z98.1 Arthrodesis status
CPT/HCPCS: 76000; J1100; J1885; J1956; J2405; J2704; J3010; J3370; J3490; J7500

== ENCOUNTER 2021-03-17 18:13 | Inpatient (IN) | payer OTHER ==
[~2021-03-17 18:13] MED LIST: Iopamidol-370 76% 500 ML 1 ML ONE; Magnevist 469MG/ML 20 ML VIAL ONE
[2021-03-17] MEDS ORDERED: HYDROmorphone 0.5 MG/0.5 ML SYRINGE ONE ×2 (20:16→21:29)
[2021-03-17 20:18] LABS: #Eosinphils 0.1 thou/uL (0.0-0.7); #Lymphocytes 1.9 thou/uL (1.20-3.40); #Monocytes 0.7 thou/uL (0.11-0.59); #Neutrophils 3.6 thou/uL (1.40-6.50); %Basophils 0.4 % (0.0-1.0); %Eosinophils 1.1 % (0.0-10.0); %Lymphocytes 30.7 % (21.0-51.0); %Monocytes 10.5 % (0.0-10.0); %Neutrophils 57.3 % (42.0-75.0); Hemoglobin 10.6 g/dL (12.0-16.0); Mean Corpuscular Hemoglobin 29.6 pg (27.0-31.0); Mean Corpuscular Volume 89.8 fL (78.0-98.0); Platelet Count 174 thou/uL (130-400); RBC Distribution Width 13.1 % (11.5-14.5); Red Blood Cell (RBC) Count 3.58 mill/uL (4.20-5.40); White Blood Cell (WBC) Count 6.3 thou/uL (4.8-10.8)
[2021-03-17 20:30] LABS: Prothrombin Time 12.9 sec (12.0-14.7)
[2021-03-17 20:42] LABS: ALT (SGPT) 20 U/L (8-55); AST (SGOT) 28 U/L (5-34); Albumin 4.3 g/dL (3.5-5.0); Alkaline Phosphatase 61 U/L (40-110); Anion Gap 14 mmol/L (10-20); BUN (Urea Nitrogen) 14 mg/dL (9.8-20.1); Bilirubin, Total 1.1 mg/dL (0.2-1.2); Calc. Creatinine Clearance 0 mL/min (70-130); Calcium 9.6 mg/dL (7.8-10.44); Carbon Dioxide 27 mmol/L (22-29); Chloride 101 mmol/L (98-107); Globulin 3.1 g/dL (2.4-3.5); Glucose 107 mg/dL (70-105); Potassium 3.9 mmol/L (3.5-5.1); Protein, Total 7.4 g/dL (6.0-8.3); Sodium 138 mmol/L (136-145)
[2021-03-17] MEDS ORDERED: Dexamethasone 10 MG/ML VIAL ONE (21:29)
[2021-03-17] MEDS ORDERED: Ondansetron PF 4 MG/2 ML Vial IVP PRN (22:12)
[2021-03-17] MEDS ORDERED: Ondansetron ODT 4 MG TAB PO PRN (22:12)
[2021-03-17 23:42] VITALS: BMI 32.3
[2021-03-18] MEDS: Morphine 4 MG/ML VIAL SLOW IVP PRN ×2 (00:39→13:57)
[2021-03-18] MEDS ORDERED: Dextrose 5% in Water 1,000 ML IV PRN (01:13)
[2021-03-18] MEDS ORDERED: HumaLOG 300 UNITS/3 ML VIAL SC PRN (01:13)
[2021-03-18] MEDS ORDERED: Dextrose 50% Abboject 50 ML SYRINGE SLOW IVP PRN (01:13)
[2021-03-18] MEDS: HYDROcodone/Acetaminophen 7.5/325 mg Tablet PO PRN ×5 (02:00→21:26)
[2021-03-18 05:30] LABS: Band 2 % (5-11); Hemoglobin 10.9 g/dL (12.0-16.0); Lymphocytes 14 % (21-51); MDiff Complete? YES; Mean Corpuscular Hemoglobin 27.4 pg (27.0-31.0); Mean Corpuscular Volume 88.2 fL (78.0-98.0); Mean Platelet Volume 10.2 fL (7.4-10.4); Monocytes 2 % (0-10); Neutrophil 82 % (42-75); Platelet Count 190 thou/uL (130-400); Platelet Morphology Comment Appears Adequate; RBC Distribution Width 13.2 % (11.5-14.5); Red Blood Cell (RBC) Count 3.97 mill/uL (4.20-5.40); White Blood Cell (WBC) Count 5.3 thou/uL (4.8-10.8)
[2021-03-18 05:42] LABS: Anion Gap 15 mmol/L (10-20); BUN (Urea Nitrogen) 11 mg/dL (9.8-20.1); Calc. Creatinine Clearance 137 mL/min (70-130); Calcium 9.8 mg/dL (7.8-10.44); Carbon Dioxide 24 mmol/L (22-29); Chloride 100 mmol/L (98-107); Glucose 180 mg/dL (70-105); Potassium 4.3 mmol/L (3.5-5.1); Sodium 135 mmol/L (136-145)
[2021-03-18] MEDS ORDERED: Non-Formulary Item 1 EACH (Dulaglutide [Trulicity] 0.75 MG/0.5 ML Pen.Injctr) SC SCH (18:00)
[2021-03-18] MEDS ORDERED: tiZANidine HCl 4 MG TAB PO SCH (21:00)
[2021-03-18] MEDS: DULoxetine 30 MG CAP PO SCH (21:13)
[2021-03-18] MEDS: Atorvastatin Calcium 40 MG TAB PO SCH (21:13)
[2021-03-19] MEDS: HYDROcodone/Acetaminophen 7.5/325 mg Tablet PO PRN ×2 (06:11→14:15)
[2021-03-19] MEDS ORDERED: Meloxicam 7.5 MG TAB PO PRN (08:45)
[2021-03-19] MEDS: DULoxetine 30 MG CAP PO SCH ×2 (08:54→22:01)
[2021-03-19] MEDS: Polyethylene Glycol 3350 17 GM Packet PO SCH (08:54)
[2021-03-19] MEDS: Senokot S 8.6-50 MG TAB PO SCH ×2 (08:54→22:00)
[2021-03-19] MEDS: tiZANidine HCl 4 MG TAB PO SCH ×2 (08:55→22:00)
[2021-03-19] MEDS: methylPREDNISolone 4 mg Tablet PO SCH (08:55)
[2021-03-19] MEDS: azaTHIOprine 50 MG TAB PO SCH (08:55)
[2021-03-19] MEDS: metFORMIN 500 MG TAB PO SCH ×2 (08:55→17:34)
[2021-03-19] MEDS: Gabapentin 400 MG CAP PO SCH ×3 (09:00→22:00)
[2021-03-19] MEDS ORDERED: Non-Formulary Item 1 EACH (Gabapentin [Gabapentin] 800 MG Tablet) PO SCH (09:00)
[2021-03-19] MEDS ORDERED: HumaLOG 300 UNITS/3 ML VIAL SC PRN ×2 (09:02)
[2021-03-19] MEDS: Atorvastatin Calcium 40 MG TAB PO SCH (22:01)
[2021-03-20] MEDS: HYDROcodone/Acetaminophen 7.5/325 mg Tablet PO PRN ×2 (04:05→17:44)
[2021-03-20] MEDS: methylPREDNISolone 4 mg Tablet PO SCH (08:38)
[2021-03-20] MEDS: azaTHIOprine 50 MG TAB PO SCH (08:38)
[2021-03-20] MEDS: DULoxetine 30 MG CAP PO SCH ×2 (08:38→21:44)
[2021-03-20] MEDS: metFORMIN 500 MG TAB PO SCH ×2 (08:38→17:43)
[2021-03-20] MEDS: tiZANidine HCl 4 MG TAB PO SCH ×3 (08:38→21:45)
[2021-03-20] MEDS: Gabapentin 400 MG CAP PO SCH ×3 (08:40→21:44)
[2021-03-20] MEDS: Polyethylene Glycol 3350 17 GM Packet PO SCH (08:43)
[2021-03-20] MEDS: Senokot S 8.6-50 MG TAB PO SCH ×2 (08:43→21:45)
[2021-03-20] MEDS: Atorvastatin Calcium 40 MG TAB PO SCH (21:44)
[2021-03-21] MEDS: metFORMIN 500 MG TAB PO SCH ×2 (10:03→17:20)
[2021-03-21] MEDS: Gabapentin 400 MG CAP PO SCH ×3 (10:04→21:09)
[2021-03-21] MEDS: DULoxetine 30 MG CAP PO SCH ×2 (10:04→21:11)
[2021-03-21] MEDS: azaTHIOprine 50 MG TAB PO SCH (10:04)
[2021-03-21] MEDS: methylPREDNISolone 4 mg Tablet PO SCH (10:04)
[2021-03-21] MEDS: tiZANidine HCl 4 MG TAB PO SCH ×3 (10:04→21:11)
[2021-03-21] MEDS: Polyethylene Glycol 3350 17 GM Packet PO SCH (10:07)
[2021-03-21] MEDS: Senokot S 8.6-50 MG TAB PO SCH ×2 (10:07→21:11)
[2021-03-21] MEDS: HYDROcodone/Acetaminophen 7.5/325 mg Tablet PO PRN ×2 (10:12→14:46)
[2021-03-21] MEDS: Atorvastatin Calcium 40 MG TAB PO SCH (21:11)
[2021-03-22] MEDS: Senokot S 8.6-50 MG TAB PO SCH (08:49)
[2021-03-22] MEDS: methylPREDNISolone 4 mg Tablet PO SCH (08:49)
[2021-03-22] MEDS: azaTHIOprine 50 MG TAB PO SCH (08:49)
[2021-03-22] MEDS: tiZANidine HCl 4 MG TAB PO SCH ×2 (08:49→15:37)
[2021-03-22] MEDS: Gabapentin 400 MG CAP PO SCH ×2 (08:49→15:37)
[2021-03-22] MEDS: metFORMIN 500 MG TAB PO SCH ×2 (08:50→18:04)
[2021-03-22] MEDS: DULoxetine 30 MG CAP PO SCH (08:50)
[2021-03-22] MEDS: Polyethylene Glycol 3350 17 GM Packet PO SCH (08:50)
[2021-03-22 15:52] VITALS: BP 138/83; TEMP 97.8
== END 2021-03-22 17:14 | DRG 552 ==
LOC: ERS 18:13 → SURG B 21:56 → INTOOBSV 21:56 → OBSVTOIN 03-19 12:44
PROVIDERS: ADMIT Family Medicine; ATTEND Family Medicine
DX: M54.9 Dorsalgia, unspecified (principal); G97.62 Postprocedural hematoma of a nervous system organ or structure following other procedure; E11.9 Type 2 diabetes mellitus without complications; I10 Essential (primary) hypertension; E78.5 Hyperlipidemia, unspecified; M06.9 Rheumatoid arthritis, unspecified; M35.00 Sjogren syndrome, unspecified; F32.9 Major depressive disorder, single episode, unspecified; F41.9 Anxiety disorder, unspecified; G89.29 Other chronic pain; K21.9 Gastro-esophageal reflux disease without esophagitis; Y83.8 Other surgical procedures as the cause of abnormal reaction of the patient, or of later complication, without mention of misadventure at the time of the procedure; Z88.0 Allergy status to penicillin; Z88.2 Allergy status to sulfonamides; Z91.018 Allergy to other foods; Z91.048 Other nonmedicinal substance allergy status; Z79.84 Long term (current) use of oral hypoglycemic drugs; Z79.1 Long term (current) use of non-steroidal anti-inflammatories (NSAID); Z79.899 Other long term (current) drug therapy; Z90.710 Acquired absence of both cervix and uterus
CPT/HCPCS: 36415; 36416; 72158; 74177; 80048; 80053; 82550; 84145; 85007; 85025; 85027; 85610; 85652; 85730; 86140; 93005; 93010; 96374; 96375; 96376; A9579; G0378; J1100; J1170; J1815; J2270; J2405; J7500; J7509; Q9967

== ENCOUNTER 2021-04-26 07:53 | Outpatient (CLI) | payer OTHER | END 2021-04-26 07:54 | disposition home or self-care (01) | LOC: CT 07:53 | PROVIDERS: ATTEND Internal Medicine | DX: W19.XXXA Unspecified fall, initial encounter (principal); M48.061 Spinal stenosis, lumbar region without neurogenic claudication; Z98.890 Other specified postprocedural states | CPT/HCPCS: 72131 ==

== ENCOUNTER 2021-09-12 12:18 | Outpatient (CLI) | payer OTHER | END 2021-09-12 12:19 | disposition home or self-care (01) | LOC: TBSIIMAG 12:18 | PROVIDERS: ATTEND Surgery | DX: M54.2 Cervicalgia (principal); M47.812 Spondylosis without myelopathy or radiculopathy, cervical region; M48.02 Spinal stenosis, cervical region; Z98.1 Arthrodesis status | CPT/HCPCS: 72141 ==

== ENCOUNTER 2021-10-18 13:14 | Outpatient (CLI) | payer OTHER | END 2021-10-18 13:15 | disposition home or self-care (01) | LOC: BICCT 13:14 | PROVIDERS: ATTEND Surgery | DX: M50.10 Cervical disc disorder with radiculopathy, unspecified cervical region (principal); M47.22 Other spondylosis with radiculopathy, cervical region; M53.2X2 Spinal instabilities, cervical region; M48.02 Spinal stenosis, cervical region; M51.34 Other intervertebral disc degeneration, thoracic region; Z98.890 Other specified postprocedural states; Z98.1 Arthrodesis status | CPT/HCPCS: 72050; 72125 ==

== ENCOUNTER 2021-12-06 10:32 | Outpatient (CLI) | payer MEDICARE ==
[2021-12-06 12:33] LABS: Hemoglobin 11.9 g/dL (12.0-15.5); Mean Corpuscular HGB CONC 31.6 g/dL (32.0-36.0); Mean Corpuscular Hemoglobin 28.4 pg (27.0-33.0); Mean Corpuscular Volume 89.7 fl (81.6-98.3); Mean Platelet Volume 12.1 fl (7.4-10.4); Platelet Count 228 10x3/uL (150-450); RBC Distribution Width 13.9 % (11.5-14.5); Red Blood Cell (RBC) Count 4.19 10x6/uL (3.90-5.03); White Blood Cell (WBC) Count 5.1 10x3/uL (3.5-10.5)
[2021-12-06 12:40] LABS: PTT 25.6 sec (22.0-33.0); Prothrombin Time 10.7 sec (9.5-12.1)
[2021-12-06 12:55] LABS: Anion Gap 15 mmol/L (10-20); BUN (Urea Nitrogen) 19 mg/dL (9.8-20.1); Calc. Creatinine Clearance 0 mL/min (70-130); Calcium 9.7 mg/dL (7.8-10.44); Carbon Dioxide 24 mmol/L (22-29); Chloride 104 mmol/L (98-107); Glucose 146 mg/dL (70-105); Sodium 139 mmol/L (136-145)
[2021-12-06 23:52] LABS: SARS-CoV-2 PCR by NAA Not Detected (NotDetected)
== END 2021-12-06 10:33 | disposition home or self-care (01) ==
LOC: LABBT 10:32
PROVIDERS: ATTEND Neurological Surgery
DX: Z01.818 Encounter for other preprocedural examination (principal); T84.296A Other mechanical complication of internal fixation device of vertebrae, initial encounter; M47.12 Other spondylosis with myelopathy, cervical region; Z20.822 Contact with and (suspected) exposure to COVID-19
CPT/HCPCS: 80048; 85027; 85610; 85730; 86850; 86900; 86901; 93005; U0003; U0005; 93010

== ENCOUNTER 2022-11-26 08:46 | Outpatient (CLI) | payer MEDICARE | END 2022-11-26 08:47 | disposition home or self-care (01) | LOC: TBSIIMAG 08:46 | PROVIDERS: ATTEND Surgery | DX: M47.812 Spondylosis without myelopathy or radiculopathy, cervical region (principal); M89.38 Hypertrophy of bone, other site; Z98.1 Arthrodesis status | CPT/HCPCS: 72040; 72141 ==

== ENCOUNTER 2023-02-08 13:30 | Emergency (ER) | payer MEDICARE ==
[2023-02-08] MEDS ORDERED: Acetaminophen 500 MG TAB ONE (14:04)
[2023-02-08] MEDS ORDERED: Magnesium 2 GM/50 ML BAG (IN WATER) ONE (14:04)
[2023-02-08] MEDS ORDERED: Prochlorperazine 10 MG/2 ML VIAL ONE ×2 (14:04→14:06)
[2023-02-08] MEDS ORDERED: Ketorolac Tromethamine 30 MG/ML VIAL ONE (14:04)
== END 2023-02-08 17:14 | disposition home or self-care (01) ==
LOC: ERS 13:30
DX: R51.9 Headache, unspecified (principal); E11.40 Type 2 diabetes mellitus with diabetic neuropathy, unspecified; K21.9 Gastro-esophageal reflux disease without esophagitis; Z79.84 Long term (current) use of oral hypoglycemic drugs; Z79.899 Other long term (current) drug therapy; Z79.4 Long term (current) use of insulin
CPT/HCPCS: 70450; 85652; 96365; 96368; 96375; J0780; J1885; J3475

== ENCOUNTER 2023-07-09 10:13 | Outpatient (CLI) | payer MEDICARE | END 2023-07-09 10:14 | disposition home or self-care (01) | LOC: BICMAMMO 10:13 | PROVIDERS: ATTEND Student in an Organized Health Care Education/Training Program | DX: Z12.31 Encounter for screening mammogram for malignant neoplasm of breast (principal); Z13.820 Encounter for screening for osteoporosis; Z78.0 Asymptomatic menopausal state | CPT/HCPCS: 77063; 77067; 77080 ==